=== PATIENT | male | born 1955 | race Caucasian/White ===

== ENCOUNTER 2019-03-14 15:56 | Inpatient (IN) ==
[2019-03-14] MEDS ORDERED: DOPamine 800 MG/250 ML PREMIX IV PRN (19:23)
[2019-03-14] MEDS ORDERED: ONDANSETRON 4 MG/2 ML VIAL IV PRN (19:25)
[2019-03-14] MEDS ORDERED: ACETAMINOPHEN 325 MG TABLET PO PRN (19:25)
[2019-03-14] MEDS ORDERED: ALBUTEROL 2.5 MG/3 ML NEB RESP TX PRN (19:25)
[2019-03-14] MEDS ORDERED: DOCUSATE SODIUM 100 MG CAPSULE PO PRN (19:25)
[2019-03-14] MEDS ORDERED: MORPHINE 4 MG/1 ML VIAL IV PRN (19:25)
[2019-03-14] MEDS ORDERED: LACTULOSE 20 GM/30 ML UDCUP PO PRN (19:25)
[2019-03-14] MEDS ORDERED: LEVALBUTEROL 0.31 MG/3 ML NEB RESP TX PRN (19:31)
[2019-03-14] MEDS ORDERED: GLUCAGON 1 MG VIAL IM PRN (19:33)
[2019-03-14] MEDS ORDERED: DEXTROSE 10% 250 ML BAG IV PRN (19:33)
[2019-03-14] MEDS ORDERED: DOBUTamine 500 MG/250 ML PREMIX IV PRN (19:40)
[2019-03-14 19:50] LABS: Allen Test Positive
[2019-03-14 19:51] LABS: ABG Base Excess -0.5 MMOL/L (-2.5-2.5); ABG PCO2 33.5 MM HG (35-48); ABG PH 7.445 (7.35-7.45); ABG PO2 99.9 MM HG (80-95); ABG TCO2 21.1 MMOL/L (23-27)
[2019-03-14 20:11] LABS: Apearance,Urine Slightly Hazy (Clear); Bacteria,Urine Occasional /HPF (Few); Bilirubin,Urine Negative (Negative); Blood, Urine Moderate mg/dL (Negative); Glucose,Urine (UA) Negative (Negative); Granular Casts,Urine 3 /LPF (0-1); Hyaline Casts,Urine 13 /LPF (0-3); Ketones,Urine Negative (Negative); Mucus,Urine Occasional /LPF (Occasional); Nitrite,Urine Negative (Negative); Protein,Urine 30 MG/DL; RBC,Urine 49 /HPF (0-4); Squamous Epithelial Cell,Urine Occasional /HPF (0-10); Urine Color Yellow (Yellow); Urine Specific Gravity 1.013 (1.001-1.035); Urine Urobilinogen < 2.0 EU/DL (0.2-1.0)
[2019-03-14] MEDS: INSULIN REGULAR 100 UNIT/ML SUBCUT SCH (20:17)
[2019-03-14 20:44] LABS: Basophils % 0.1 % (0.0-0.8); Hematocrit 30.6 VOL% (42.0-52.0); Hemoglobin 8.9 GM/DL (14.0-18.0); Immature Granulocytes Absolute 0.19 #; Lymphocytes # 0.4 10*3/uL (1.4-4.0); Lymphocytes % 1.9 % (21.2-54.2); Mean Corpuscular HGB Conc 29.1 GM/DL (32-36); Mean Corpuscular Volume 83.4 FL (87-102); Mean Platelet Volume 9.7 FL (9.6-12.0); Monocytes % 4.6 % (1.7-12.7); Neutrophils % 92.4 % (38.7-73.9); Platelet Count 281 T/CUMM (130-400); Red Blood Count 3.67 MC/CUMM (3.8-5.5); White Blood Count 19.9 T/CUMM (4-12)
[2019-03-14 20:53] LABS: INR 1.4; PT Patient Result 15.4 SECS
[2019-03-14] MEDS ORDERED: VANCOMYCIN INJ 1,500 MG in SODIUM CHLORIDE 0.9% 500 ML IV ONE (21:00)
[2019-03-14] MEDS ORDERED: FAMOTIDINE 20 MG/2 ML VIAL IV SCH (21:00)
[2019-03-14] MEDS ORDERED: GABAPENTIN 400 MG CAPSULE PO SCH (21:00)
[2019-03-14] MEDS: CARVEDILOL 3.125 MG TABLET PO SCH (21:05)
[2019-03-14] MEDS: TICAGRELOR 90 MG TABLET PO SCH (21:05)
[2019-03-14] MEDS: ATORVASTATIN 40 MG TABLET PO SCH (21:05)
[2019-03-14] MEDS: FUROSEMIDE 40 MG/4 ML VIAL IV SCH (21:05)
[2019-03-14 21:06] LABS: Anisocytosis 1+; Hypochromasia 1+; Lymphocytes 3 % (20-55); Microcytosis 1+; Ovalocytes Slight; Platelet Estimate Normal; Segmented Neutrophils 93 % (50-85); Total Cells Counted 100
[2019-03-14] MEDS: MEROPENEM 500 MG in SODIUM CHLORIDE 0.9% 100 ML IV SCH (21:06)
[2019-03-14 21:15] LABS: Alanine Aminotransferase 85 U/L (16-61); Albumin 2.6 G/DL (3.4-5.0); Alkaline Phosphatase 282 U/L (45-117); Aspartate Amino Transferase 112 U/L (0-37); Blood Urea Nitrogen 42 MG/DL (7-18); Calcium 8.3 MG/DL (8.5-10.1); Glucose 142 MG/DL (74-106); Osmolality,Calculated 285.8 MOS/KG (273-304); Total Protein 8.1 G/DL (6.4-8.3)
[2019-03-14] MEDS: VANCOMYCIN INJ 1,500 MG in SODIUM CHLORIDE 0.9% 500 ML IV SCH (21:56)
[2019-03-15 01:07] LABS: Basophils # 0.1 10*3/uL (0.0-0.2); Basophils % 0.2 % (0.0-0.8); Hematocrit 31.7 VOL% (42.0-52.0); Hemoglobin 9.3 GM/DL (14.0-18.0); Immature Granulocytes Absolute 0.21 #; Lymphocytes # 0.9 10*3/uL (1.4-4.0); Lymphocytes % 4.2 % (21.2-54.2); Mean Corpuscular HGB Conc 29.3 GM/DL (32-36); Mean Platelet Volume 9.2 FL (9.6-12.0); Monocytes % 3.7 % (1.7-12.7); NRBC # 0.02 10*3/uL; Neutrophils % 90.9 % (38.7-73.9); Platelet Count 259 T/CUMM (130-400); Red Blood Count 3.82 MC/CUMM (3.8-5.5); White Blood Count 20.6 T/CUMM (4-12)
[2019-03-15 01:27] LABS: Albumin 2.8 G/DL (3.4-5.0); Bilirubin,Total 1.1 MG/DL (0.2-1.0); Calcium 8.6 MG/DL (8.5-10.1); Osmolality,Calculated 286.8 MOS/KG (273-304); Risk Ratio 2.15; Total Protein 8.4 G/DL (6.4-8.3)
[2019-03-15 02:54] LABS: Band Neutrophils 4 % (0-10); Lymphocytes 4 % (20-55); Metamyelocytes 1 %; Myelocytes 1 %; Segmented Neutrophils 85 % (50-85)
[2019-03-15 03:05] LABS: Hypochromasia Slight; Ovalocytes 1+; Platelet Estimate Normal; Polychromasia Few; Total Cells Counted 100
[2019-03-15] MEDS: ENOXAPARIN 80 MG/0.8 ML SYRINGE SUBCUT SCH ×2 (04:20→16:32)
[2019-03-15] MEDS: INSULIN REGULAR 100 UNIT/ML SUBCUT SCH ×4 (08:22→20:19)
[2019-03-15] MEDS: CARVEDILOL 3.125 MG TABLET PO SCH ×2 (08:32→16:32)
[2019-03-15] MEDS: FUROSEMIDE 40 MG/4 ML VIAL IV SCH ×2 (08:32→16:32)
[2019-03-15 09:08] LABS: CKMB % 2.8 %
[2019-03-15] MEDS: MEROPENEM 500 MG in SODIUM CHLORIDE 0.9% 100 ML IV SCH ×2 (09:08→20:19)
[2019-03-15] MEDS: TICAGRELOR 90 MG TABLET PO SCH ×2 (09:08→20:18)
[2019-03-15] MEDS: ASPIRIN EC 81 MG TABLET PO SCH (09:08)
[2019-03-15] MEDS: PANTOPRAZOLE 20 MG TABLET PO SCH (09:08)
[2019-03-15] MEDS: VANCOMYCIN INJ 1,500 MG in SODIUM CHLORIDE 0.9% 500 ML IV SCH ×2 (09:09→20:52)
[2019-03-15 09:11] LABS: Troponin I 7.02 NG/ML (0.00-0.045)
[2019-03-15] MEDS: DESITIN 4OZ/NYSTATIN 15 GRAM MIXTURE PASTE TOP SCH ×2 (14:16→20:56)
[2019-03-15] MEDS ORDERED: POTASSIUM CHLORIDE RIDER 10 MEQ in PREMIX 1 EACH IV PRN (16:49)
[2019-03-15] MEDS ORDERED: MAGNESIUM SULF RIDER 2 GM in PREMIX 1 EACH IV PRN (16:49)
[2019-03-15] MEDS: ATORVASTATIN 40 MG TABLET PO SCH (20:18)
[2019-03-15] MEDS: GABAPENTIN 400 MG CAPSULE PO SCH (20:18)
[2019-03-15] MEDS: INSULIN GLARGINE 100 UNIT/ML SUBCUT SCH (20:19)
[2019-03-16 03:01] LABS: Basophils % 0.3 % (0.0-0.8); Eosinophils % 0.2 % (0.00-10.9); Hematocrit 27.8 VOL% (42.0-52.0); Hemoglobin 8.4 GM/DL (14.0-18.0); Immature Granulocytes % 0.4 %; Immature Granulocytes Absolute 0.05 #; Lymphocytes # 1.5 10*3/uL (1.4-4.0); Mean Corpuscular HGB Conc 30.2 GM/DL (32-36); Mean Corpuscular Volume 81.5 FL (87-102); Mean Platelet Volume 10.2 FL (9.6-12.0); Monocytes % 7.5 % (1.7-12.7); Neutrophils % 79.6 % (38.7-73.9); Platelet Count 248 T/CUMM (130-400); Red Blood Count 3.41 MC/CUMM (3.8-5.5); Red Cell Distribution Width 17.9 % (9.3-17.3); White Blood Count 12.3 T/CUMM (4-12)
[2019-03-16 03:21] LABS: Calcium 8.2 MG/DL (8.5-10.1); Osmolality,Calculated 290.3 MOS/KG (273-304)
[2019-03-16] MEDS: ENOXAPARIN 80 MG/0.8 ML SYRINGE SUBCUT SCH ×2 (04:10→17:53)
[2019-03-16] MEDS: INSULIN REGULAR 100 UNIT/ML SUBCUT SCH ×4 (07:43→20:48)
[2019-03-16] MEDS: CARVEDILOL 3.125 MG TABLET PO SCH ×2 (07:58→17:53)
[2019-03-16] MEDS: FUROSEMIDE 40 MG/4 ML VIAL IV SCH ×2 (07:58→17:52)
[2019-03-16] MEDS ORDERED: diphenhydrAMINE CAP 25 MG CAPSULE PO ONE (08:00)
[2019-03-16] MEDS ORDERED: DIAZEPAM 5 MG TABLET PO ONE (08:00)
[2019-03-16] MEDS: MEROPENEM 500 MG in SODIUM CHLORIDE 0.9% 100 ML IV SCH ×2 (08:02→20:42)
[2019-03-16] MEDS: ASPIRIN EC 81 MG TABLET PO SCH (08:04)
[2019-03-16] MEDS: TICAGRELOR 90 MG TABLET PO SCH ×2 (08:04→20:48)
[2019-03-16] MEDS: DESITIN 4OZ/NYSTATIN 15 GRAM MIXTURE PASTE TOP SCH ×2 (08:05→21:32)
[2019-03-16] MEDS: PANTOPRAZOLE 20 MG TABLET PO SCH (08:05)
[2019-03-16] MEDS ORDERED: LIDOCAINE 1% 20 ML VIAL ONE (09:13)
[2019-03-16] MEDS ORDERED: MIDAZOLAM 2 MG/2 ML VIAL ONE (09:14)
[2019-03-16] MEDS ORDERED: HYDROmorphone 2 MG/1 ML VIAL ONE (09:14)
[2019-03-16] MEDS: VANCOMYCIN INJ 1,500 MG in SODIUM CHLORIDE 0.9% 500 ML IV SCH (11:24)
[2019-03-16] MEDS: VANCOMYCIN INJ 1,250 MG in SODIUM CHLORIDE 0.9% 250 ML IV SCH (12:40)
[2019-03-16] MEDS: INSULIN GLARGINE 100 UNIT/ML SUBCUT SCH (20:47)
[2019-03-16] MEDS: ATORVASTATIN 40 MG TABLET PO SCH (20:48)
[2019-03-16] MEDS: GABAPENTIN 400 MG CAPSULE PO SCH (20:48)
[2019-03-17] MEDS: VANCOMYCIN INJ 1,250 MG in SODIUM CHLORIDE 0.9% 250 ML IV SCH ×2 (00:47→13:41)
[2019-03-17 04:00] LABS: Basophils % 0.4 % (0.0-0.8); Eosinophils # 0.1 10*3/uL (0.0-0.87); Eosinophils % 1.1 % (0.00-10.9); Hematocrit 28.6 VOL% (42.0-52.0); Hemoglobin 8.4 GM/DL (14.0-18.0); Immature Granulocytes % 0.3 %; Immature Granulocytes Absolute 0.03 #; Lymphocytes # 1.6 10*3/uL (1.4-4.0); Lymphocytes % 18.4 % (21.2-54.2); Mean Corpuscular HGB Conc 29.4 GM/DL (32-36); Mean Corpuscular Volume 81.9 FL (87-102); Mean Platelet Volume 10.1 FL (9.6-12.0); NRBC # 0.02 10*3/uL; Neutrophils % 70.8 % (38.7-73.9); Platelet Count 255 T/CUMM (130-400); Red Blood Count 3.49 MC/CUMM (3.8-5.5); Red Cell Distribution Width 18.1 % (9.3-17.3); White Blood Count 8.9 T/CUMM (4-12)
[2019-03-17 04:39] LABS: Osmolality,Calculated 289.5 MOS/KG (273-304)
[2019-03-17] MEDS: ENOXAPARIN 80 MG/0.8 ML SYRINGE SUBCUT SCH (05:50)
[2019-03-17] MEDS: INSULIN REGULAR 100 UNIT/ML SUBCUT SCH ×4 (08:58→21:58)
[2019-03-17] MEDS ORDERED: POTASSIUM CHLORIDE 20 MEQ/15 ML UDCUP PER TUBE PRN (09:16)
[2019-03-17] MEDS: ASPIRIN EC 81 MG TABLET PO SCH (10:12)
[2019-03-17] MEDS: PANTOPRAZOLE 20 MG TABLET PO SCH (10:12)
[2019-03-17] MEDS: TICAGRELOR 90 MG TABLET PO SCH ×2 (10:12→21:55)
[2019-03-17] MEDS: CARVEDILOL 3.125 MG TABLET PO SCH (10:12)
[2019-03-17] MEDS: DESITIN 4OZ/NYSTATIN 15 GRAM MIXTURE PASTE TOP SCH ×2 (10:13→21:58)
[2019-03-17] MEDS: MEROPENEM 500 MG in SODIUM CHLORIDE 0.9% 100 ML IV SCH ×2 (10:13→21:55)
[2019-03-17] MEDS: FUROSEMIDE 40 MG/4 ML VIAL IV SCH (10:13)
[2019-03-17] MEDS: POTASSIUM CHLORIDE 20 MEQ TABLET PO PRN ×2 (11:30→13:41)
[2019-03-17] MEDS ORDERED: NITROGLYCERIN SL 0.4 MG TABLET SL PRN (12:30)
[2019-03-17] MEDS ORDERED: CARVEDILOL 3.125 MG TABLET PO ONE (13:53)
[2019-03-17] MEDS ORDERED: FUROSEMIDE 40 MG/4 ML VIAL IV ONE (14:54)
[2019-03-17] MEDS: ROSUVASTATIN 20 MG TABLET PO SCH (15:19)
[2019-03-17] MEDS ORDERED: FUROSEMIDE 40 MG TABLET PO SCH (16:00)
[2019-03-17] MEDS: GABAPENTIN 400 MG CAPSULE PO SCH (21:55)
[2019-03-17] MEDS: CARVEDILOL 6.25 MG TABLET PO SCH (21:55)
[2019-03-17] MEDS: INSULIN GLARGINE 100 UNIT/ML SUBCUT SCH (22:13)
[2019-03-18] MEDS: VANCOMYCIN INJ 1,250 MG in SODIUM CHLORIDE 0.9% 250 ML IV SCH (00:37)
[2019-03-18 06:30] LABS: % Iron Saturation 6.6 % (18-50); Calcium 8.2 MG/DL (8.5-10.1); Ferritin 99.2 ng/ml (26-388); Osmolality,Calculated 288.7 MOS/KG (273-304)
[2019-03-18] MEDS: INSULIN REGULAR 100 UNIT/ML SUBCUT SCH ×4 (09:23→21:21)
[2019-03-18] MEDS: ASPIRIN EC 81 MG TABLET PO SCH (09:31)
[2019-03-18] MEDS: MEROPENEM 500 MG in SODIUM CHLORIDE 0.9% 100 ML IV SCH (09:31)
[2019-03-18] MEDS: TICAGRELOR 90 MG TABLET PO SCH ×2 (09:31→21:21)
[2019-03-18] MEDS: CARVEDILOL 6.25 MG TABLET PO SCH ×2 (09:31→17:03)
[2019-03-18] MEDS: PANTOPRAZOLE 20 MG TABLET PO SCH (09:31)
[2019-03-18] MEDS: ROSUVASTATIN 20 MG TABLET PO SCH (09:31)
[2019-03-18] MEDS: DESITIN 4OZ/NYSTATIN 15 GRAM MIXTURE PASTE TOP SCH ×2 (09:32→21:25)
[2019-03-18] MEDS ORDERED: FUROSEMIDE 40 MG/4 ML VIAL IV ONE ×2 (12:04→14:00)
[2019-03-18] MEDS: DOXYCYCLINE HYCLATE 100 MG CAPSULE PO SCH (21:21)
[2019-03-18] MEDS: GABAPENTIN 400 MG CAPSULE PO SCH (21:21)
[2019-03-18] MEDS: INSULIN GLARGINE 100 UNIT/ML SUBCUT SCH (21:22)
[2019-03-19] MEDS ORDERED: VANCOMYCIN INJ 1,250 MG in SODIUM CHLORIDE 0.9% 250 ML IV SCH
[2019-03-19 05:02] LABS: Calcium 8.1 MG/DL (8.5-10.1)
[2019-03-19 05:28] LABS: Basophils % 0.3 % (0.0-0.8); Eosinophils # 0.2 10*3/uL (0.0-0.87); Eosinophils % 1.6 % (0.00-10.9); Hematocrit 28.5 VOL% (42.0-52.0); Hemoglobin 8.3 GM/DL (14.0-18.0); Immature Granulocytes % 0.7 %; Immature Granulocytes Absolute 0.06 #; Lymphocytes # 1.3 10*3/uL (1.4-4.0); Lymphocytes % 14.1 % (21.2-54.2); Mean Corpuscular HGB Conc 29.1 GM/DL (32-36); Mean Corpuscular Volume 82.1 FL (87-102); Monocytes % 10.8 % (1.7-12.7); NRBC # 0.03 10*3/uL; Neutrophils % 72.5 % (38.7-73.9); Platelet Count 209 T/CUMM (130-400); Red Blood Count 3.47 MC/CUMM (3.8-5.5); White Blood Count 9.1 T/CUMM (4-12)
[2019-03-19 05:39] LABS: Anisocytosis 1+; Hypochromasia 1+; Microcytosis 2+; Polychromasia Slight
[2019-03-19 05:40] LABS: Platelet Estimate Normal
[2019-03-19 08:19] VITALS: BP 100/71
[2019-03-19] MEDS ORDERED: LEVOFLOXACIN 500 MG TABLET PO SCH (09:00)
[2019-03-19] MEDS: CARVEDILOL 6.25 MG TABLET PO SCH (09:11)
[2019-03-19] MEDS: ROSUVASTATIN 20 MG TABLET PO SCH (09:11)
[2019-03-19] MEDS: DESITIN 4OZ/NYSTATIN 15 GRAM MIXTURE PASTE TOP SCH (09:11)
[2019-03-19] MEDS: PANTOPRAZOLE 20 MG TABLET PO SCH (09:11)
[2019-03-19] MEDS: DOXYCYCLINE HYCLATE 100 MG CAPSULE PO SCH (09:11)
[2019-03-19] MEDS: TICAGRELOR 90 MG TABLET PO SCH (09:11)
[2019-03-19] MEDS: INSULIN REGULAR 100 UNIT/ML SUBCUT SCH (09:11)
[2019-03-19] MEDS: ASPIRIN EC 81 MG TABLET PO SCH (09:11)
== END 2019-03-19 13:56 | disposition home health service (06) | DRG 280 ==
LOC: SUATTDRO 17:32 → N.CC 17:32 → N.TELES 03-16 18:26
PROVIDERS: ADMIT Internal Medicine; ATTEND Internal Medicine